=== PATIENT | female | born 1990 | race Caucasian/White ===

== ENCOUNTER 2019-05-30 05:30 | Emergency (ER) | payer OTHER, SELFPAY ==
[~2019-05-30] VITALS: Ht 170.2 cm; Wt 93.8 kg
[~2019-05-30 05:30] MED LIST: MEDR1VL IM; PROZ10CA7 PO; TRAZ1TAB6 PO
[2019-05-30] MEDS ORDERED: NS 1,000 ML IV ONE (07:15)
[2019-05-30] MEDS ORDERED: KETOROLAC 30 MG/ML VIAL (J1885) IV ONE (07:15)
[2019-05-30] MEDS ORDERED: MACR100C43 PO (07:33)
[2019-05-30 07:41] LABS: BASO # 0.1 10^3/uL (0.0-0.2); BASO % 0.5 % (0.0-1.0); EOS # 0.2 10^3/uL (0.0-0.5); EOS % 1.3 % (0.0-3.0); HEMATOCRIT 40.3 % (36.0-47.0); HEMOGLOBIN 13.7 g/dl (12.0-15.5); LYMPH # 1.7 10^3/uL (1.5-5.0); LYMPH % 10.4 % (24.0-44.0); MEAN CORPUSCULAR HEMOGLOBIN 32.5 pg (27.0-33.0); MEAN CORPUSCULAR VOLUME 95.7 fl (80.0-96.0); MONO # 0.9 10^3/uL (0.0-0.8); MONO % 5.3 % (0.0-5.0); NEUTROPHILS # 13.5 10^3/uL (1.5-8.5); NEUTROPHILS % 81.8 % (36.0-66.0); PLATELET COUNT, AUTOMATED 323 10^3/uL (150-450); RED BLOOD COUNT 4.21 10^6/uL (4.00-5.40); WHITE BLOOD COUNT 16.5 10^3/uL (4.0-10.0)
[2019-05-30] MEDS ORDERED: ONDANSETRON 4MG/2ML VIAL (J2405) IV ONE (07:45)
[2019-05-30 08:04] LABS: ALBUMIN 3.5 GM/DL (3.2-5.2); ALT/SGPT 62 U/L (12-78); BILIRUBIN,DIRECT < 0.1 MG/DL (0.0-0.2); BILIRUBIN,TOTAL 0.2 MG/DL (0.2-1.0); BLOOD UREA NITROGEN 13 MG/DL (7-18); CALCIUM LEVEL 8.6 MG/DL (8.5-10.1); CARBON DIOXIDE LEVEL 24 MEQ/L (21-32); CHLORIDE LEVEL 108 MEQ/L (98-107); CREATININE FOR GFR 0.66 MG/DL (0.55-1.30); GLOMERULAR FILTRATION RATE > 60.0 (>60); GLUCOSE, FASTING 100 MG/DL (70-100); SODIUM LEVEL 140 MEQ/L (136-145); TOTAL PROTEIN 6.5 GM/DL (6.4-8.2)
--- NOTE | 2019-05-30 08:27 | REP ---
Urinary tract sonography: History: Right flank pain. Urinary frequency. Findings: Scanning at the level of the urinary bladder shows smooth bladder uribe. No extra vesicle lesion is seen. Renal cortical echogenicity pattern is normal and renal contours are smooth. The right kidney measures 13.3 x 5.0 x 4.5 cm. Left renal dimensions are 12.7 x 3.8 x 5.4 cm. There is a right renal cyst at the upper pole measuring 2.9 x 2.1 x 2.0 cm. No mass lesion is seen. There is no evidence of hydronephrosis on either side. Impression: 2.9 cm cyst upper pole right kidney. Otherwise negative urinary tract sonography. Electronically Signed by Yunior Mccracken MD 05/30/2019 08:19 A
[2019-05-30] MEDS ORDERED: cefTRIAXone SOD 1 GM in D5W MINI-BAG PLUS 50 ML IV ONE (08:45)
[2019-05-30] MEDS ORDERED: DIFL150T PO (09:20)
[2019-05-30] MEDS ORDERED: IBUP80TA PO (09:20)
[2019-05-30] MEDS ORDERED: CIPR-249 PO (09:20)
[2019-05-30 09:34] VITALS: BP 119/63
== END 2019-05-30 09:35 | disposition home or self-care (01) ==
LOC: M ED 05:30
DX: N39.0 Urinary tract infection, site not specified (principal); N28.1 Cyst of kidney, acquired; J45.909 Unspecified asthma, uncomplicated; K21.9 Gastro-esophageal reflux disease without esophagitis; F32.9 Major depressive disorder, single episode, unspecified; F41.9 Anxiety disorder, unspecified; F17.210 Nicotine dependence, cigarettes, uncomplicated
CPT/HCPCS: 76775; 80048; 80076; 81001; 85025; 96361; 96365; 96375; 99284; J0696; J1885; J2405